=== PATIENT | female | born 1965 | race Caucasian/White ===

== ENCOUNTER → 2017-02-27 | Outpatient (CLI) | payer BC | END | disposition home or self-care (01) | LOC: MAMMO 14:49 | DX: Z12.31 Encounter for screening mammogram for malignant neoplasm of breast (principal) | CPT/HCPCS: 77067 ==

== ENCOUNTER → 2018-04-18 | Outpatient (CLI) | payer BC ==
--- NOTE | 2018-04-18 13:31 | KCIC ---
EXAM: Chest, 2 views. HISTORY: Wheezing. COMPARISON: None. FINDINGS: 2 views the chest are obtained. There is no infiltrate, pleural effusion or pneumothorax. There is chronic appearing mild diffuse increased interstitial opacity. There is a prominent cardiac silhouette. IMPRESSION: 1. Suspected chronic interstitial changes and mild enlargement of the cardiac silhouette. 2. No acute pulmonary finding. Electronically signed by: Kassandra Tyler MD (04/18/2018 1:28 PM) [id number]
== END | disposition home or self-care (01) ==
LOC: KCIC 10:43
PROVIDERS: ATTEND Family Medicine
DX: J40 Bronchitis, not specified as acute or chronic (principal); R06.2 Wheezing
CPT/HCPCS: 71046